=== PATIENT | female | born 1985 | race Caucasian/White ===

== ENCOUNTER 2023-11-24 09:16 | Emergency (ER) | payer MEDICAID ==
[~2023-11-24] VITALS: Ht 160 cm; Wt 55.0 kg
[2023-11-24 09:21] VITALS: O2SAT 99
[2023-11-24] MEDS: SODIUM CHLORIDE 0.9% 1,000 ML IV ONE (09:30)
[2023-11-24] MEDS: ONDANSETRON HCL 4MG/2ML INJ IV ONE (09:30)
[2023-11-24] MEDS: FAMOTIDINE 20MG/2ML VIAL IV ONE (09:30)
[2023-11-24 11:17] LABS: BASOPHILS % 0.8 % (0.0-2.0); EOSINOPHILS % 0.1 % (0.0-5.0); HEMATOCRIT. 45.3 % (36.0-48.0); HEMOGLOBIN. 15.7 g/dL (12.0-16.0); LYMPHOCYTES % 12.6 % (20.0-50.0); MEAN CORPUSCULAR HEMOGLOBIN 34.5 pg (28.0-32.0); MEAN CORPUSCULAR HGB CONC 34.6 g/dL (31.0-37.0); MEAN CORPUSCULAR VOLUME 99.7 fL (81.0-99.0); MEAN PLATELET VOLUME 8.1 fl (7.4-10.4); MONOCYTES % 4.6 % (2.0-8.0); NEUTROPHILS % 81.9 % (40.0-76.0); PLATELET 270 x1000/uL (130-400); RED BLOOD CELL COUNT 4.54 mill/uL (4.2-5.4); RED CELL DISTRIBUTION WIDTH 13.9 % (11.6-14.6); WHITE BLOOD COUNT 10.4 x1000/uL (4.5-11.0)
[2023-11-24 11:24] LABS: CHLORIDE 102 mEq/L (98-107); POTASSIUM 3.5 mEq/L (3.5-5.1); SODIUM 139 mEq/L (136-145)
[2023-11-24 11:25] LABS: CARBON DIOXIDE 25 mEq/L (21-32)
[2023-11-24 11:30] LABS: CREATININE 0.5 mg/dL (0.6-1.0); GLUCOSE 95 mg/dL (70-105)
[2023-11-24 11:31] LABS: UREA NITROGEN BLOOD 10 mg/dL (9-23)
[2023-11-24 11:39] LABS: HCG SCREEN NEGATIVE
[2023-11-24] MEDS: DICYCLOMINE HCL 10MG/ML 2ML VIAL IM NR (11:45)
[2023-11-24] MEDS: KETOROLAC 30MG/ML VIAL IV NR (11:45)
[2023-11-24] MEDS ORDERED: FLUCONAZOLE 100MG TABLET PO ONE (13:45)
[2023-11-24 14:00] VITALS: BP 121/66; PULSE 87; RESP 19; TEMP 98
[2023-11-24] MEDS: FLUCONAZOLE 150MG TABLET PO NR (14:00)
== END 2023-11-24 16:21 | disposition home or self-care (01) ==
LOC: ER 09:39
DX: R10.13 Epigastric pain (principal)
CPT/HCPCS: 80048; 84703; 83690; 85025; 85610; 36415; 96374; 96375; 99284; J0500; J3490; J1885; J2405; J7030; Z7610 ×3